=== PATIENT | female | born 1965 | race Caucasian/White ===

== ENCOUNTER → 2021-02-08 | Outpatient (CLI) | payer MEDICARE, OTHER ==
[~2021-02-08] MED LIST: ADVAIR 250-501 EACH INH; AUGMENTIN 875-1 EACH PO; BACTROBAN OINT22 GM EXT; CALCIUM + VITA1 EACH PO; COLACE 100MG C100 MG PO; DULCOLAX10 MG PR; ECOTRIN81 MG PO; ELIQUIS 5 MG TAB5 MG PO; ENULOSE10 GM/15 M PO; FEOSOL325 MG PO; FLAX OIL1000 MG PO; HUMALOG100 UNIT/3 SQ; HYDROCODON-ACE1 EAC6 PO; LANTUS SOL100 UNIT/1 SQ; LEVEMIR100 UNIT/1 SQ; LEXAPRO10 MG PO; LIDOPATCH1 EACH TP; LINZESS145 MCG PO; LIPITOR TAB 2020 MG PO; LOPRESSOR 25 MG25 MG PO; NORVASC 5 MG TAB5 MG PO; NOVOLOG FL100 UNIT/1 SQ; NOVOLOG100 UNIT/1 SQ; OMEPRAZOLE20 MG PO; OXYCODONE HCL10 MG PO; PROTONIX40 MG PO; ROXICODONE5 MG PO; SANTYL OINT 3030 GM TP; SPIRIVA HANDIH18 MCG INH; TAMBOCOR 100 M100 MG PO; THERAGRAN M TAB1 EA PO; TYLENOL 325MG325 MG PO; VITAMIN C 250250 MG PO; XOPENEX1.25 MG/3 INH
== END ==
LOC: KOH-I 14:49
DX: M25.532 Pain in left wrist (principal)
CPT/HCPCS: 73100

== ENCOUNTER 2021-02-23 15:27 | Inpatient (IN) | payer MEDICARE, OTHER ==
[~2021-02-23] VITALS: Ht 167.6 cm; Wt 106.1 kg
[2021-02-23 18:41] LABS: HEMOGLOBIN 13.3 gm/dl (12.3-15.3); RED BLOOD COUNT 4.75 M/UL (4.00-5.10); WHITE BLOOD COUNT 3.5 K/UL (4.5-11.0)
[2021-02-23 19:07] LABS: BUN/CREATININE RATIO 18 (0-10)
[2021-02-24] MEDS ORDERED: HYDROCODON-ACE1 EAC6 PO (00:02)
[2021-02-24] MEDS ORDERED: AMITRIPTYLINE H25 MG PO (00:03)
[2021-02-24] MEDS ORDERED: GABAPENTIN300 MG PO (00:04)
[2021-02-24] MEDS ORDERED: BLUE-EMU LIDOC1 EACH TD (00:05)
[2021-02-24] MEDS ORDERED: MOVANTIK25 MG PO (00:06)
[2021-02-24 04:46] LABS: HEMOGLOBIN 13.5 gm/dl (12.3-15.3); RED BLOOD COUNT 4.87 M/UL (4.00-5.10)
[2021-02-24 04:48] LABS: WHITE BLOOD COUNT 2.4 K/UL (4.5-11.0)
--- NOTE | 2021-02-24 08:15 | NUR ---
attempted to notify md of patient's blood glucose this am without success. will attempt at a later time. no s/sx of distress noted to patient.
[2021-02-25 06:42] LABS: HEMOGLOBIN 12.5 gm/dl (12.3-15.3); RED BLOOD COUNT 4.5 M/UL (4.00-5.10)
[2021-02-25 06:50] LABS: WHITE BLOOD COUNT 5.5 K/UL (4.5-11.0)
[2021-02-25] MEDS ORDERED: DECADRON6 MG PO (08:45)
--- NOTE | 2021-02-25 12:43 | NUR ---
1230 Patient's 02 Sat 85% on room air.
[2021-02-26 08:25] LABS: HEMOGLOBIN 13.5 gm/dl (12.3-15.3); RED BLOOD COUNT 4.84 M/UL (4.00-5.10)
[2021-02-26 08:41] LABS: WHITE BLOOD COUNT 8.3 K/UL (4.5-11.0)
[2021-02-26 09:12] LABS: BUN/CREATININE RATIO 43 (0-10)
[2021-02-26] MEDS ORDERED: PROAIR HFA8.5 GM INH (09:25)
[2021-02-26] MEDS ORDERED: LEVOFLOXACIN500 MG PO (09:34)
== END 2021-02-26 15:40 | disposition home or self-care (01) | DRG 871 ==
LOC: ER1 15:27 → MED SURG 4 21:33 → CDU 21:33 → MED SURG 4 23:10
PROVIDERS: Internal Medicine; Physician Assistant; ADMIT Internal Medicine
PROC: 8E0ZXY6 Isolation (ICD-10-PCS; principal; 2021-02-23)
PROC: XW033E5 Introduction of Remdesivir Anti-infective into Peripheral Vein, Percutaneous Approach, New Technology Group 5 (ICD-10-PCS; 2021-02-24)
PROC: 3E0333Z Introduction of Anti-inflammatory into Peripheral Vein, Percutaneous Approach (ICD-10-PCS; 2021-02-26)
DX: A41.89 Other specified sepsis (principal); U07.1 COVID-19; J12.82 Pneumonia due to coronavirus disease 2019; J96.01 Acute respiratory failure with hypoxia; J15.9 Unspecified bacterial pneumonia; J96.02 Acute respiratory failure with hypercapnia; N17.9 Acute kidney failure, unspecified; E87.1 Hypo-osmolality and hyponatremia; I10 Essential (primary) hypertension; I25.10 Atherosclerotic heart disease of native coronary artery without angina pectoris; J44.9 Chronic obstructive pulmonary disease, unspecified; E11.9 Type 2 diabetes mellitus without complications; Z79.4 Long term (current) use of insulin; Z89.512 Acquired absence of left leg below knee; Z98.51 Tubal ligation status; Z88.6 Allergy status to analgesic agent; I25.2 Old myocardial infarction
CPT/HCPCS: 36415; 36600; 71045; 80048; 80053; 81001; 82436; 82533; 82550; 82553; 82803; 82962; 83605; 83735; 83874; 83880; 84133; 84300; 84439; 84443; 84484; 84550; 85025; 85027; 86140; 87040; 93005; 94640; 94760; 96374; 99285; J0456; J1100; J1650; J2185; J7030

== ENCOUNTER 2021-03-27 11:11 | Inpatient (IN) | payer MEDICARE, OTHER ==
[~2021-03-27] VITALS: Ht 167.6 cm; Wt 104.3 kg
[~2021-03-27 11:11] MED LIST changes: +AMITRIPTYLINE H25 MG PO; +BLUE-EMU LIDOC1 EACH TD; +DECADRON6 MG PO; +GABAPENTIN300 MG PO; +LEVOFLOXACIN500 MG PO; +MOVANTIK25 MG PO; +PROAIR HFA8.5 GM INH
[2021-03-27 12:34] LABS: HEMOGLOBIN 13.4 gm/dl (12.3-15.3); RED BLOOD COUNT 4.81 M/UL (4.00-5.10); WHITE BLOOD COUNT 6.3 K/UL (4.5-11.0)
--- NOTE | 2021-03-27 23:56 | NUR ---
LATE ENTRY. 2044 PT ARRIVED TO FLOOR FROM ER. VITALS ARE FOLLOWS. BP 65/42 HR86 RR 14 TEMP 99 0272% RM AIR. CALLED DR PORTILLO AND ORDERS RECIEVED AND PLACED. ALSO NOTIFIED PALOMA FERRAROBRICK OR [employer].
[2021-03-28 03:47] LABS: WHITE BLOOD COUNT 7.1 K/UL (4.5-11.0)
[2021-03-28 04:06] LABS: HEMOGLOBIN 10.3 gm/dl (12.3-15.3); RED BLOOD COUNT 3.74 M/UL (4.00-5.10)
[2021-03-28] MEDS ORDERED: ADVAIR 100-501 EACH INH (11:28)
[2021-03-28] MEDS ORDERED: CRESTOR40 MG PO (11:28)
[2021-03-29 04:40] LABS: HEMOGLOBIN 10.2 gm/dl (12.3-15.3); RED BLOOD COUNT 3.72 M/UL (4.00-5.10); WHITE BLOOD COUNT 5.6 K/UL (4.5-11.0)
[2021-03-29] MEDS ORDERED: ASPIRIN81 MG PO (15:13)
== END 2021-03-29 18:46 | disposition home or self-care (01) | DRG 896 ==
LOC: ER1 11:11 → PROG CARE 18:04 → CDU 18:04 → PROG CARE 20:41
PROVIDERS: ADMIT Internal Medicine
DX: F11.23 Opioid dependence with withdrawal (principal); G92.8 Other toxic encephalopathy; I40.0 Infective myocarditis; I21.4 Non-ST elevation (NSTEMI) myocardial infarction; N17.9 Acute kidney failure, unspecified; N39.0 Urinary tract infection, site not specified; J44.9 Chronic obstructive pulmonary disease, unspecified; I25.10 Atherosclerotic heart disease of native coronary artery without angina pectoris; G62.9 Polyneuropathy, unspecified; E11.42 Type 2 diabetes mellitus with diabetic polyneuropathy; Z89.512 Acquired absence of left leg below knee; I25.2 Old myocardial infarction; Z86.16 Personal history of COVID-19; Z88.6 Allergy status to analgesic agent; Z79.4 Long term (current) use of insulin; Z87.891 Personal history of nicotine dependence; Z98.890 Other specified postprocedural states; K57.90 Diverticulosis of intestine, part unspecified, without perforation or abscess without bleeding; K58.9 Irritable bowel syndrome, unspecified
CPT/HCPCS: ECHO; 36415; 70450; 70551; 71045; 78452; 80053; 80202; 80307; 81001; 82140; 82550; 82553; 82728; 82962; 83036; 83605; 84439; 84443; 84484; 85025; 86140; 87040; 93005; 93017; 93306; 94640; 94760; 96372; 96374; 96375; 99285; A9502; G0480; J0696; J1170; J1630; J1650; J2060; J2185; J2543; J2785; J3370; J3411; J7030; J7070; Q9967; U0002

== ENCOUNTER 2021-06-22 22:58 | Emergency (ER) | payer MEDICARE, OTHER ==
[~2021-06-22 22:58] MED LIST changes: +ADVAIR 100-501 EACH INH; +ASPIRIN81 MG PO; +CRESTOR40 MG PO
[2021-06-23 01:26] LABS: HEMOGLOBIN 12.1 gm/dl (12.3-15.3); RED BLOOD COUNT 4.29 M/UL (4.00-5.10); WHITE BLOOD COUNT 7.5 K/UL (4.5-11.0)
[2021-06-23 02:22] LABS: BUN/CREATININE RATIO 29 (0-10)
== END 2021-06-23 05:45 | disposition home or self-care (01) ==
LOC: ER1 22:58
PROVIDERS: Physician Assistant
DX: E11.65 Type 2 diabetes mellitus with hyperglycemia (principal); Z20.822 Contact with and (suspected) exposure to COVID-19; Z79.4 Long term (current) use of insulin
CPT/HCPCS: 0240U; 80053; 80307; 81001; 84703; 85025; 87081; 87086; 87880; 99285; J2405